=== PATIENT | male | born 1970 | race Caucasian/White ===

== ENCOUNTER 2019-10-08 17:34 | Emergency (ER) | payer SELFPAY ==
[~2019-10-08] VITALS: Ht 160 cm; Wt 75.0 kg
[2019-10-08] MEDS ORDERED: ASPI-989 PO (17:46)
[2019-10-08 18:43] VITALS: BP 129/76
== END 2019-10-08 19:40 | disposition home or self-care (01) ==
LOC: EMS 17:44
DX: S62.630A Displaced fracture of distal phalanx of right index finger, initial encounter for closed fracture (principal); W23.0XXA Caught, crushed, jammed, or pinched between moving objects, initial encounter; Y93.89 Activity, other specified; Y92.89 Other specified places as the place of occurrence of the external cause; Y99.8 Other external cause status

== ENCOUNTER 2021-04-19 16:58 | Emergency (ER) | payer MEDICAID ==
[~2021-04-19] VITALS: Ht 167.6 cm; Wt 63.6 kg
[~2021-04-19 16:58] MED LIST: ASPI-989 PO
[2021-04-19] MEDS ORDERED: TYLENOL PO (17:07)
[2021-04-19] MEDS ORDERED: CAFFEINE PO (17:07)
[2021-04-19] MEDS ORDERED: IBUP-2070 PO (17:07)
[2021-04-19] MEDS ORDERED: [UNRECOGNIZED DRUG - CODE] PO (18:25)
[2021-04-19] MEDS ORDERED: METOCLOPRAMIDE HCL 5 MG/ML 2 ML VIAL IVP ONE (18:30)
[2021-04-19] MEDS ORDERED: KETOROLAC TROMETHAMINE 30 MG/ML VIAL IVP ONE (18:30)
[2021-04-19] MEDS ORDERED: SODIUM CHLORIDE 0.9% 1,000 ML IV ONE (18:30)
[2021-04-19] MEDS ORDERED: DiphenhydrAMINE HCL 50 MG/ML VIAL IVP ONE (18:30)
[2021-04-19 19:57] VITALS: BP 124/79
== END 2021-04-19 19:59 | disposition home or self-care (01) ==
LOC: EMS 16:58
DX: R51.9 Headache, unspecified (principal); Z87.891 Personal history of nicotine dependence
CPT/HCPCS: 70450; 96361; 96374; 96375; 99284; J1200; J1885; J2765; J7030

== ENCOUNTER 2021-08-15 10:40 | Emergency (ER) | payer MEDICAID ==
[~2021-08-15] VITALS: Ht 165.1 cm; Wt 76.4 kg
[~2021-08-15 10:40] MED LIST changes: -ASPI-989 PO; +IBUP-2070 PO; +[UNRECOGNIZED DRUG - CODE] PO
[2021-08-15] MEDS ORDERED: HYDROCODONE/ACETAMINOPHEN 5-325 MG TABLET PO ONE (13:15)
[2021-08-15 14:53] VITALS: BP 142/80
== END 2021-08-15 14:55 | disposition home or self-care (01) ==
LOC: EMS 10:40
DX: S30.0XXA Contusion of lower back and pelvis, initial encounter (principal); Z79.899 Other long term (current) drug therapy; Z87.891 Personal history of nicotine dependence; W20.8XXA Other cause of strike by thrown, projected or falling object, initial encounter; Y93.89 Activity, other specified; Y92.89 Other specified places as the place of occurrence of the external cause; Y99.8 Other external cause status
CPT/HCPCS: 72072; 72110; 72170; 99284; Z7502; Z7610

== ENCOUNTER 2021-10-26 18:09 | Emergency (ER) | payer SELFPAY ==
[~2021-10-26] VITALS: Ht 167.6 cm; Wt 72.7 kg
[2021-10-26 18:35] VITALS: BP 136/92
[2021-10-26] MEDS ORDERED: KETOROLAC TROMETHAMINE 10 MG TABLET PO ONE (19:30)
== END 2021-10-26 19:59 | disposition home or self-care (01) ==
LOC: EMS 18:13
DX: M75.102 Unspecified rotator cuff tear or rupture of left shoulder, not specified as traumatic (principal)
CPT/HCPCS: 99283

== ENCOUNTER 2022-04-20 20:15 | Emergency (ER) | payer MEDICAID | END 2022-04-20 22:00 | disposition left against medical advice (07) | LOC: EMS 21:13 | DX: Z53.21 Procedure and treatment not carried out due to patient leaving prior to being seen by health care provider (principal) ==

== ENCOUNTER 2022-04-24 09:24 | Emergency (ER) | payer MEDICAID ==
[~2022-04-24] VITALS: Ht 167.6 cm; Wt 59.1 kg
[2022-04-24 09:42] VITALS: BP 129/61
== END 2022-04-24 10:54 | disposition home or self-care (01) ==
LOC: EMS 09:24
DX: M75.42 Impingement syndrome of left shoulder (principal); Z98.890 Other specified postprocedural states
CPT/HCPCS: 99281; Z7502

== ENCOUNTER 2022-04-27 11:04 | Emergency (ER) | payer MEDICAID ==
[~2022-04-27] VITALS: Ht 167.6 cm; Wt 59.1 kg
[~2022-04-27 11:04] MED LIST changes: -[UNRECOGNIZED DRUG - CODE] PO
[2022-04-27] MEDS ORDERED: IBUP-14 PO (11:07)
[2022-04-27] MEDS ORDERED: KETOROLAC TROMETHAMINE 30 MG/ML VIAL IM ONE (12:45)
[2022-04-27 13:40] VITALS: BP 128/85
== END 2022-04-27 13:48 | disposition home or self-care (01) ==
LOC: EMS 11:04
DX: S46.002A Unspecified injury of muscle(s) and tendon(s) of the rotator cuff of left shoulder, initial encounter (principal); Z98.890 Other specified postprocedural states; X58.XXXA Exposure to other specified factors, initial encounter; Y93.89 Activity, other specified; Y92.89 Other specified places as the place of occurrence of the external cause; Y99.8 Other external cause status
CPT/HCPCS: 96372; 99283; J1885